=== PATIENT | female | born 1950 | race American Indian/Alaskan Native ===

== ENCOUNTER 2021-06-22 14:07 | Emergency (ER) | payer MEDICARE ==
[2021-06-22] MEDS ORDERED: ACETAMINOPHEN 325 MG TAB PO ONE (15:19)
--- NOTE | 2021-06-22 15:35 | Emergency Department Report ---
ED Fall HPI - General Chief Complaint: Fall Stated Complaint: FALL/HEAD AND BODY PAIN Source: patient Mode of arrival: Ambulatory - History of Present Illness Initial Comments: 70-year-old female slipped and fell on concrete presents to the ED today with a headache ,left shoulder and left rib pain. Patient states that she did not have any pain yesterday but awakened with pain today. Denies any loss of consciousness any dizziness or nausea and vomiting. MD Complaint: fall Onset/Timin -: days(s) Fall From: other (Ground-level fall) Fall Witnessed: yes, by family Place Fall Occurred: home Loss of Consciousness: none Prolonged Down Time?: no Symptoms Prior to Fall: none Location: head, other (Left shoulder) Location - Extremities: Left: Shoulder Severity scale (0 -10): 4 Quality: aching Context: tripped/slipped Associated Symptoms: denies - Related Data Allergies Allergy/AdvReac Type Severity Reaction Status Date / Time No Known Allergies Allergy Unverified 06/22/21 14:44 ED Review of Systems ROS: Stated complaint: FALL/HEAD AND BODY PAIN Other details as noted in HPI Constitutional: denies: chills, fever Eyes: denies: eye pain, eye discharge, vision change ENT: denies: ear pain, throat pain Respiratory: denies: cough, shortness of breath, wheezing Cardiovascular: denies: chest pain, palpitations Endocrine: no symptoms reported Gastrointestinal: denies: abdominal pain, nausea, diarrhea Genitourinary: denies: urgency, dysuria, discharge Musculoskeletal: arthralgia, other. denies: back pain, joint swelling Skin: denies: rash, lesions Neurological: headache. denies: weakness, paresthesias Psychiatric: denies: anxiety, depression Hematological/Lymphatic: denies: easy bleeding, easy bruising ED Physical Exam - General Limitations: No Limitations General appearance: alert, in no apparent distress - Head Head exam: Present: atraumatic, normocephalic - Eye Eye exam: Present: normal appearance - ENT ENT exam: Present: mucous membranes moist - Neck Neck exam: Present: normal inspection - Respiratory Respiratory exam: Present: normal lung sounds bilaterally. Absent: respiratory distress - Cardiovascular Cardiovascular Exam: Present: regular rate, normal rhythm. Absent: systolic murmur, diastolic murmur, rubs, gallop - GI/Abdominal GI/Abdominal exam: Present: soft, normal bowel sounds - Extremities Exam Extremities exam: Present: normal inspection - Expanded Upper Extremity Exam Left Shoulder Exam: Present: normal inspection, full ROM. Absent: tenderness, swelling, abrasion, ecchymosis, deformity - Back Exam Back exam: Present: normal inspection - Neurological Exam Neurological exam: Present: alert, oriented X3, CN II-XII intact - Psychiatric Psychiatric exam: Present: normal affect, normal mood - Skin Skin exam: Present: warm, dry, intact, normal color. Absent: rash ED Course Vital Signs 06/22/21 06/22/21 14:51 17:04 Temperature 98.5 F 98.3 F Pulse Rate 68 62 Respiratory 20 16 Rate Blood Pressure 134/66 125/78 [Right] O2 Sat by Pulse 97 98 Oximetry ED Medical Decision Making - Radiology Data [address] [address] XRay Report Signed Patient: MER HARVEY MR#: [id number] 32 : 1950 Acct:[id number] Age/Sex: 70 / F ADM Date: 06/22/21 Loc: ED Attending Dr: Ordering Physician: ANDRES SEPULVEDA Date of Service: 06/22/21 Procedure(s): XR ribs UNILAT 2V LT Accession Number(s): [id number] cc: ANDRES SEPULVEDA Fluoro Time In Minutes: XR ribs UNILAT 2V LT INDICATION / CLINICAL INFORMATION: RIB PAIN. COMPARISON: None available. FINDINGS: SUPPORT DEVICES: None. HEART /PULMONARY VASCULATURE: No significant abnormality. LUNGS / PLEURA: No significant pulmonary or pleural abnormality. No pneumothorax. BONES: No acute displaced left rib fracture. IMPRESSION: 1. No acute findings. Signer Name: Kaitlin Hall MD Signed: 06/22/2021 3:55 PM Workstation Name: [id number] Transcribed By: JS Dictated By: KAITLIN HALL MD Electronically Authenticated By: KAITLIN HALL MD Signed Date/Time: 06/22/211554 DD/ 53 TD/TT: Print Cancel [address] [address] XRay Report Signed Patient: MER HARVEY MR#: [id number] [birth year] : 1950 Acct:[id number] Age/Sex: 70 / F ADM Date: 06/22/21 Loc: ED Attending Dr: Ordering Physician: ANDRES SEPULVEDA Date of Service: 06/22/21 Procedure(s): XR shoulder 2+V LT Accession Number(s): [id number] cc: ANDRES SEPULVEDA Fluoro Time In Minutes: Left shoulder, 3 views HISTORY: Shoulder pain COMPARISON: None FINDINGS: Mild diffuse osteopenia with mild left AC osteoarthritis. No acute fracture or malalignment. IMPRESSION: No acute process. Signer Name: Kaitlin Hall MD Signed: 06/22/2021 3:56 PM Workstation Name: [id number] Transcribed By: MIKA Dictated By: KAITLIN HALL MD Electronically Authenticated By: KAITLIN HALL MD Signed Date/Time: 06/22/21 155 DD/ 54 TD/TT:[place] [address] Cat Scan Report Signed Patient: MER HARVEY MR#: [id number] 32 : 1950 Acct:[id number] Age/Sex: 70 / F ADM Date: 06/22/21 Loc: ED Attending Dr: Ordering Physician: ANDRES SEPULVEDA Date of Service: 06/22/21 Procedure(s): CT head/brain wo con Accession Number(s): [id number] cc: ANDRES SEPULVEDA CT head/brain wo con INDICATION: FALL. TECHNIQUE: Routine CT head. All CT scans at this location are performed using CT dose reduction for ALARA by means of automated exposure control. COMPARISON: None. FINDINGS: Intracranial: Mosquera-white matter differentiation is maintained. No intracranial hemorrhage. No extra axial collection. No hydrocephalus. No herniation. Sinuses: Paranasal sinuses and mastoid air cells are essentially clear. Orbits: Globes are intact. Calvarium: No acute fracture. IMPRESSION: 1. No acute intracranial abnormality. Signer Name: Daniel Sandoval MD Signed: 06/22/2021 4:11 PM Workstation Name: [id number] Transcribed By: MARCIAL Dictated By: Daniel Sandoval MD Electronically Authenticated By: Daniel Sandoval MD Signed Date/Time: 06/22/211610 DD/ 09 TD/TT: - Medical Decision Making 70-year-old female slipped and fell on concrete presents to the ED today with a headache ,left shoulder and left rib pain. Patient states that she did not have any pain yesterday but awakened with pain today. Denies any loss of consciousness any dizziness or nausea and vomiting. Imaging data reviewed and discussed with patient. Reassessment of pain. Discussed with patient to follow-up with orthopedic. Patient alert and oriented Critical care attestation.: If time is entered above; I have spent that time in minutes in the direct care of this critically ill patient, excluding procedure time. ED Disposition Clinical Impression: Rib pain on left side Fall Qualifiers: Encounter type: initial encounter Qualified Code(s): W19.XXXA - Unspecified fall, initial encounter Left shoulder pain Qualifiers: Chronicity: unspecified Qualified Code(s): M25.512 - Pain in left shoulder Disposition: 01 HOME / SELF CARE / HOMELESS Is pt being admited?: No Does the pt Need Aspirin: No Condition: Stable Instructions: Shoulder Pain, Shoulder Pain, [id number], Musculoskeletal Pain, Joint Pain Additional Instructions: May take tylenol over the counter Follow up with primary care doctor Return to the Ed for any worsen symptoms Referrals: DENNY CENTENO MD [Primary Care Provider] - 3-5 Days VERONICA BELTRAN MD [Staff Physician] - 3-5 Days Time of Disposition: 16:50
--- NOTE | 2021-06-22 15:59 | XRay Report ---
XR ribs UNILAT 2V LT INDICATION / CLINICAL INFORMATION: RIB PAIN. COMPARISON: None available. FINDINGS: SUPPORT DEVICES: None. HEART /PULMONARY VASCULATURE: No significant abnormality. LUNGS / PLEURA: No significant pulmonary or pleural abnormality. No pneumothorax. BONES: No acute displaced left rib fracture. IMPRESSION: 1. No acute findings. Signer Name: Sami Hall MD Signed: 06/22/2021 3:55 PM Workstation Name: [id number]
--- NOTE | 2021-06-22 16:00 | XRay Report ---
Left shoulder, 3 views HISTORY: Shoulder pain COMPARISON: None FINDINGS: Mild diffuse osteopenia with mild left AC osteoarthritis. No acute fracture or malalignment . IMPRESSION: No acute process. Signer Name: Sami Hall MD Signed: 06/22/2021 3:56 PM Workstation Name: [id number]
--- NOTE | 2021-06-22 16:15 | Cat Scan Report ---
CT head/brain wo con INDICATION: FALL. TECHNIQUE: Routine CT head. All CT scans at this location are performed using CT dose reduction for A ENRIQUE by means of automated exposure control. COMPARISON: None. FINDINGS: Intracranial: Mosquera-white matter differentiation is maintained. No intracranial hemorrhage. No extra a xial collection. No hydrocephalus. No herniation. Sinuses: Paranasal sinuses and mastoid air cells are essentially clear. Orbits: Globes are intact. Calvarium: No acute fracture. IMPRESSION: 1. No acute intracranial abnormality. Signer Name: Daniel Sandoval MD Signed: 06/22/2021 4:11 PM Workstation Name: [id number]
[2021-06-22 17:05] VITALS: BP 125/78
== END 2021-06-22 17:05 | disposition home or self-care (01) ==
LOC: ED 14:07
DX: R07.81 Pleurodynia (principal); M25.512 Pain in left shoulder; W19.XXXA Unspecified fall, initial encounter; Y93.89 Activity, other specified; Y92.89 Other specified places as the place of occurrence of the external cause; Y99.8 Other external cause status
CPT/HCPCS: 70450; 99284

== ENCOUNTER 2021-08-25 17:47 | Emergency (ER) | payer MEDICARE ==
[2021-08-25] MEDS ORDERED: IBUPROFEN 800 MG TAB PO ONE (18:32)
--- NOTE | 2021-08-25 18:38 | Emergency Department Report ---
ED Abdominal Pain HPI - General Chief Complaint: Chest Pain Stated Complaint: CHEST PAIN PUI?: No Time Seen by Provider: 08/25/21 18:25 Source: patient Mode of arrival: Ambulatory Limitations: No Limitations - History of Present Illness Initial Comments: Chief complaint: "I have a really strong pain." HPI: This is a 71-year-old female with history of hypertension, diabetes mellitus, dyslipidemia who presents with right upper quadrant pain since . Gradual onset. Patient has a dull "strong" persistent pain. No monroy ge or eating. No change with movement. She denies fever, chest pain, shortness of breath, nausea, diarrhea. She does not recall trauma. MD Complaint: abdominal pain -: Gradual, days(s) (3 days ago on Thursday) Location: [facility] Radiation: none Migration to: no migration Severity: moderate Severity scale (0 -10): 8 Quality: dull Consistency: constant Improves With: other (Tylenol PM) Worsens With: nothing Associated Symptoms: denies other symptoms - Related Data Allergies Allergy/AdvReac Type Severity Reaction Status Date / Time No Known Allergies Allergy Unverified 06/22/21 14:44 ED Review of Systems ROS: Stated complaint: CHEST PAIN Other details as noted in HPI Comment: All other systems reviewed and negative Constitutional: denies: chills, fever, malaise Respiratory: denies: cough, shortness of breath Cardiovascular: denies: chest pain Gastrointestinal: abdominal pain. 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 Absent: respiratory distress, wheezes, rales, rhonchi - Cardiovascular Cardiovascular Exam: Present: regular rate, normal rhythm, normal heart sounds. Absent: bradycardia, tachycardia, systolic murmur, diastolic murmur, rubs, gallop - GI/Abdominal GI/Abdominal exam: Present: soft, normal bowel sounds. Absent: distended, tenderness, guarding, rebound - Extremities Exam Extremities exam: Present: normal inspection - Neurological Exam Neurological exam: Present: alert, oriented X3 - Psychiatric Psychiatric exam: Present: normal affect, normal mood - Skin Skin exam: Present: warm, dry, intact, normal color. Absent: rash ED Course Vital Signs 08/25/21 17:57 Temperature 98.3 F Pulse Rate 85 Respiratory 18 Rate Blood Pressure 152/83 [Right] O2 Sat by Pulse 98 Oximetry ED Medical Decision Making - Lab Data Result diagrams: 08/25/21 18:49 08/25/21 18:49 Laboratory Results - last 24 hr 08/25/21 08/25/21 18:49 18:49 WBC 5.9 RBC 4.34 Hgb 11.6 Hct 36.0 MCV 83 MCH 27 L MCHC 32 RDW 16.0 H Plt Count 265 Lymph % (Auto) 32.9 Metcalfe % (Auto) 8.1 H Eos % (Auto) 2.4 Baso % (Auto) 0.6 Lymph # (Auto) 1.9 Metcalfe # (Auto) 0.5 Eos # (Auto) 0.1 Baso # (Auto) 0.0 Seg Neutrophils % 56.0 Seg Neutrophils # 3.3 Sodium 138 Potassium 3.8 Chloride 101.3 Carbon Dioxide 25 Anion Gap 16 BUN 24 H Creatinine 0.7 Estimated GFR > 60 BUN/Creatinine Ratio 34 Glucose 137 H Calcium 9.6 Total Bilirubin 0.20 Direct Bilirubin < 0.2 Indirect Bilirubin 0.0 AST 13 ALT 12 Alkaline Phosphatase 95 Troponin T < 0.010 Total Protein 7.4 Albumin 4.2 Albumin/Globulin Ratio 1.3 Lipase 66 H - EKG Data -: EKG Interpreted by Me EKG shows normal: sinus rhythm Rate: normal - EKG Data 08/25/21 18:37 EKG obtained 1810 EKG interpreted by me Normal sinus rhythm rate 80 bpm normal axis normal intervals no ST elevation nonischemic T wave pattern poor R wave progression anterior leads QS complexes in V1 V2 V3 - Radiology Data Radiology results: report reviewed Chest radiograph: No acute findings, Right upper quad ultrasound: Fatty liver - Medical Decision Making Right upper quadrant pain: Differential diagnosis includes biliary colic, pneumonia, abdominal strain. Atypical for ACS. Heart score 4 however with abdominal pain is predominance I do not feel that patient has risk of major adverse cardiac event with persistent right upper quadrant abdominal pain CBC chemistry unremarkable. Equivocal mild elevation of lipase No acute findings on chest radiograph Gallbladder normal with fatty liver. CBD 4 mm. Unclear diagnosis this time. I not suspect emergent condition. Recommended ibuprofen Tylenol as needed. Critical care attestation.: If time is entered above; I have spent that time in minutes in the direct care of this critically ill patient, excluding procedure time. ED Disposition Clinical Impression: Right upper quadrant abdominal pain Disposition: HOME / SELF CARE / HOMELESS Is pt being admited?: No Does the pt Need Aspirin: No Condition: Stable Instructions: Abdominal Pain, Adult, [id number] Referrals: PRIMARY CARE,MD [Primary Care Provider] - 3-5 Days HEART Score - HEART Score History: Slightly suspicious EKG: Non-specific Age: > 65 Risk factors: 1-2 risk factors Troponin: Troponin T < 0.010 ng/mL (0.00-0.029) 08/25/21 18:49 Troponin: < normal limit HEART Score: 4 - Critical Actions Critical Actions: 4-6 pts:12-16.6% risk of adverse cardiac event. Should be admitted
[2021-08-25 19:19] LABS: Basophils % (Auto) 0.6 % (0.0-1.8); Eosinophils # (Auto) 0.1 K/mm3 (0.0-0.4); Eosinophils % (Auto) 2.4 % (0.0-4.3); Hemoglobin 11.6 gm/dl (10.1-14.3); Lymphocytes # (Auto) 1.9 K/mm3 (1.2-5.4); Lymphocytes % (Auto) 32.9 % (13.4-35.0); Mean Corpuscular HGB Conc 32 % (30-34); Mean Corpuscular Volume 83 fl (79-97); Monocytes # (Auto) 0.5 K/mm3 (0.0-0.8); Monocytes % (Auto) 8.1 % (0.0-7.3); Platelet Count 265 K/mm3 (140-440); Red Blood Count 4.34 M/mm3 (3.65-5.03)
[2021-08-25 19:41] LABS: Alanine Aminotransferase 12 units/L (7-56); Albumin 4.2 g/dL (3.9-5); Blood Urea Nitrogen 24 mg/dL (7-17); Calcium 9.6 mg/dL (8.4-10.2); Hemolysis Index 2
[2021-08-25 19:43] LABS: BUN/Creatinine Ratio 34; Bilirubin,Direct < 0.2 mg/dL (0-0.2)
--- NOTE | 2021-08-25 20:16 | Ultrasound Report ---
ULTRASOUND ABDOMEN, LIMITED (RIGHT UPPER QUADRANT) INDICATION: Right upper quadrant pain. COMPARISON: None available. FINDINGS: Pancreas: Visualized portion shows no significant abnormality. Liver: Fatty liver. Gallbladder: Normal. Bile ducts: Normal. Common Bile Duct measures 4 mm. Free fluid: None. Additional Findings: None. IMPRESSION: Fatty liver Signer Name: Candido Brewer MD Signed: 08/25/2021 8:11 PM Workstation Name: [id number]
--- NOTE | 2021-08-25 20:18 | XRay Report ---
CHEST 2 VIEWS INDICATION / CLINICAL INFORMATION: Right lower chest pain right upper quadrant pain. FINDINGS: SUPPORT DEVICES: None. HEART / MEDIASTINUM: No significant abnormality. LUNGS / PLEURA: No significant pulmonary or pleural abnormality. No pneumothorax. ADDITIONAL FINDINGS: No significant additional findings. IMPRESSION: 1. No acute findings. Signer Name: Candido Brewer MD Signed: 08/25/2021 8:13 PM Workstation Name: [id number]
[2021-08-25 20:59] VITALS: BP 134/64
--- NOTE | 2021-08-26 09:17 | Electrocardiograph Report ---
[facility] Test Date: 2021-08-25 Test Time: 18:10:50 Pat Name: MER HARVEY Department: Room: Gender: F Clinical Interviewer: ANDREW : 1950 Requested By: IFEANYI CLARK Order Number: [id number] Reading MD: Gregory Pitts Measurements Intervals [place] Rate: 78 P: 57 AK: 159 QRS: -23 QRSD: 78 T: 45 QT: 356 QTc: 407 Interpretive Statements Sinus rhythm Anterior infarct, old No previous ECG available for comparison Electronically Signed On 08-26-2021 9:17:17 EDT by Gregory Pitts
== END 2021-08-25 21:01 | disposition home or self-care (01) ==
LOC: ED 17:47
DX: R10.11 Right upper quadrant pain (principal); I10 Essential (primary) hypertension; E11.9 Type 2 diabetes mellitus without complications; Z98.890 Other specified postprocedural states
CPT/HCPCS: 36415; 71046; 76705; 80048; 80076; 83690; 84484; 85025; 93005; 99284